=== PATIENT | male | born 1980 | race African-American/Black ===

== ENCOUNTER 2017-05-19 20:14 | Emergency (ER) | payer OTHER ==
[~2017-05-19] VITALS: Ht 180.3 cm; Wt 87.1 kg
--- NOTE | 2017-05-19 20:20 | NUR ---
PT.AMBULATED TO ER [facility]
[2017-05-19 20:25] VITALS: BP 129/92
--- NOTE | 2017-05-19 20:32 | NUR ---
36 Y/O M REQUESTING DR'S NOTE. PT STATES WAS SEEN BY ER MD TODAY IN THE MORNING FOR BUG BITE TO R ARM. PA MADE AWARE.
--- NOTE | 2017-05-19 20:34 | NUR ---
PA AT BEDSIDE EVALUATING PT.
[2017-05-19 20:39] VITALS: BP 129/92
--- NOTE | 2017-05-19 20:39 | NUR ---
Patient discharged with v/s stable. Written and verbal after care instructions given and explained. Patient verbalized understanding. Ambulatory with steady gait. All questions addressed prior to discharge. Advised to follow up with PMD. DR NOTE PROVIDED BY NGOZI DIAZ.
== END 2017-05-19 20:39 | disposition home or self-care (01) ==
LOC: MED 20:14
DX: R21 Rash and other nonspecific skin eruption (principal); I10 Essential (primary) hypertension
CPT/HCPCS: 99281